=== PATIENT | male | born 1980 | race Two or more races ===

== ENCOUNTER 2023-05-27 16:00 | Emergency (ER) | payer MEDICAID ==
[~2023-05-27] VITALS: Ht 172.7 cm; Wt 100.0 kg
[2023-05-27 16:15] VITALS: TEMP 99.7
[2023-05-27] MEDS: CLINDAMYCIN HCL 150 MG CAPSULE PO ONE (17:11)
[2023-05-27] MEDS: LIDOCAINE 1% 10 ML VIAL SQ ONE (17:11)
[2023-05-27] MEDS ORDERED: CLIN-142 PO (18:02)
[2023-05-27 18:09] VITALS: BP 141/88; PULSE 95; RESP 18
== END 2023-05-27 18:28 | disposition home or self-care (01) ==
LOC: EMS 16:13
DX: L03.113 Cellulitis of right upper limb (principal)
CPT/HCPCS: 99283; 10060; J3490